=== PATIENT | male | born 1985 ===

== ENCOUNTER 2021-07-24 14:21 | Emergency (ER) | payer SELFPAY ==
[2021-07-24 14:26] VITALS: BP 135/82
--- NOTE | 2021-07-24 14:44 | Emergency Department Report ---
ED Psych HPI - General Chief Complaint: Psych Stated Complaint: PARANOIA Time Seen by Provider: 07/24/21 14:44 Source: EMS Mode of arrival: Ambulatory - History of Present Illness Initial Comments: Patient was brought in by EMS via police because he wanted to make a report about people being after him. Patient states that people have hacked his phone. They keep taking his personal information. They have stolen his email. They keep logging him out of his account and stealing his data. He has no recollection of when this started. He states that he noticed a white dot on the screen of his phone that he cannot get rid of. That was proved to him that somebody was watching him and taking his information. He states that he wants to make a police report. He is not really sure how he ended up in the hospital. EMS confirms that they were contacted because the patient seemed to have some paranoid features about people stealing his data. - Related Data Allergies Allergy/AdvReac Type Severity Reaction Status Date / Time No Known Allergies Allergy Verified 07/24/21 14:25 ED Review of Systems ROS: Stated complaint: PARANOIA Other details as noted in HPI Comment: All other systems reviewed and negative Constitutional: denies: fever Eyes: denies: vision change ENT: denies: throat pain Respiratory: denies: cough Cardiovascular: denies: chest pain Endocrine: denies: unexplained weight loss Gastrointestinal: denies: abdominal pain Genitourinary: denies: dysuria Musculoskeletal: denies: back pain Skin: denies: rash Neurological: denies: headache Psychiatric: as per HPI Hematological/Lymphatic: denies: easy bruising ED Past Medical Hx - Past Medical History Previous Medical History?: No ED Physical Exam - General Limitations: No Limitations, Other (Pulse ox noted and normal) General appearance: alert, in no apparent distress - Head Head exam: Present: atraumatic, normocephalic - Eye Eye exam: Present: normal appearance, EOMI - ENT ENT exam: Present: normal orophraynx, normal external ear exam - Neck Neck exam: Present: normal inspection. Absent: meningismus - Respiratory Respiratory exam: Present: normal lung sounds bilaterally. Absent: respiratory distress - Cardiovascular Cardiovascular Exam: Present: regular rate, normal rhythm - GI/Abdominal GI/Abdominal exam: Present: soft. Absent: tenderness - Extremities Exam Extremities exam: Present: normal capillary refill - Back Exam Back exam: Present: full ROM - Neurological Exam Neurological exam: Present: alert, oriented X3, CN II-XII intact, normal gait - Psychiatric Psychiatric exam: Present: normal affect, other (Paranoid ideas) - Skin Skin exam: Present: warm, dry ED Course Vital Signs 07/24/21 14:22 Temperature 98.2 F Pulse Rate 87 Respiratory 14 Rate Blood Pressure 135/82 [Right] O2 Sat by Pulse 99 Oximetry - Reevaluation(s) Reevaluation #1: 07/24/21 14:44 EMS was met. Labs were ordered. Old records reviewed. Reevaluation #2: 07/24/21 14:48 Patient has now eloped. He was not suicidal homicidal. He was not agitated or responding to extraneous stimuli. He was paranoid. This would not necessitate a hold. He did not have obvious visible trauma to account for symptoms. ED Medical Decision Making - Medical Decision Making Patient was brought in for paranoia. He seemed to have paranoid features but was not decompensated. He was kempt and well clean. He was in no distress. Is not suicidal homicidal. There is no indication to place this patient on a psychiatric hold. Critical Care Time: No Critical care attestation.: If time is entered above; I have spent that time in minutes in the direct care of this critically ill patient, excluding procedure time. ED Disposition Clinical Impression: Paranoia Disposition: LEFT AWOL/ELOPED Is pt being admited?: No Condition: Stable
== END 2021-07-25 05:10 | disposition left against medical advice (07) ==
LOC: ED 14:21
DX: F22 Delusional disorders (principal)
CPT/HCPCS: 99282